=== PATIENT | male | born 1965 | race Caucasian/White ===

== ENCOUNTER 2018-04-12 12:24 | Emergency (ER) | payer MEDICAID ==
[2018-04-12 12:30] VITALS: TEMP 97.8
[2018-04-12] MEDS ORDERED: methylPREDNISolone SOD SUCCI 125 MG/2 ML VIAL IM ONE (14:33)
[2018-04-12] MEDS ORDERED: KETOROLAC 30 MG/ML 1 ML VIAL IM STA (14:34)
--- NOTE | 2018-04-12 14:45 | ED ---
General Adult HPI <Benjamin Steward - Last Filed: 04/12/18 17:27> - General Source: patient, RN notes reviewed Mode of arrival: ambulatory Limitations: no limitations <Ashok Green - Last Filed: 04/12/18 17:36> - General Chief complaint: Back Pain/Injury Stated complaint: back & leg pain Time Seen by Provider: 04/12/18 13:50 - History of Present Illness Initial comments: 53-year-old male presents to the emergency department for a chief complaint of lower back pain 3 weeks. 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 Patient states pain has been consistent since that time. However, today patient woke up with shooting pain in his right lower extremity. He states it was shooting through his buttock and around to his groin and down to his knee. Patient now has tingling in the right lower extremity. Patient admits to mild mild weakness in the right lower extremity but is unsure if this is due to the tingling. However, he states he is able to walk without difficulty. He denies bladder or bowel changes and states he is urinating regularly. He denies any saddle anesthesia or numbness of the groin or buttock. Patient denies any history of chronic steroid use, IV drug abuse, history of cancer. He denies any fevers or chills at home. Patient has no other complaints at this time including shortness of breath, chest pain, abdominal pain, nausea or vomiting, headache, or visual changes. (Ashok Green) - Related Data Home Medications Medication Instructions Recorded Confirmed Ibuprofen [Motrin] 600 mg PO Q4H PRN 04/12/18 04/12/18 buPROPion XL [Wellbutrin Xl] 150 mg PO DAILY 04/12/18 04/12/18 Previous Rx's Medication Instructions Recorded predniSONE 50 mg PO DAILY #5 tablet 04/12/18 Allergies Allergy/AdvReac Type Severity Reaction Status Date / Time Iodinated Contrast- Oral and Allergy Unknown Verified 04/12/18 13:43 IV Dye Review of Systems ROS Other: All systems not noted in ROS Statement are negative. <Benjamin Steward - Last Filed: 04/12/18 17:27> ROS Other: All systems not noted in ROS Statement are negative. <Peter,Ashok P - Last Filed: 04/12/18 17:36> ROS Statement: Those systems with pertinent positive or pertinent negative responses have been documented in the HPI. Past Medical History Past Medical History: No Reported History History of Any Multi-Drug Resistant Organisms: None Reported Past Surgical History: Orthopedic Surgery Additional Past Surgical History / Comment(s): arm reconstuction Past Psychological History: Depression Smoking Status: Never smoker Past Alcohol Use History: None Reported Past Drug Use History: None Reported <Ashok Green P - Last Filed: 04/12/18 17:36> General Exam Limitations: no limitations General appearance: alert, in no apparent distress Head exam: Present: atraumatic, normocephalic, normal inspection Eye exam: Present: normal appearance, PERRL, EOMI. Absent: scleral icterus, conjunctival injection, periorbital swelling, periorbital tenderness ENT exam: Present: normal exam, mucous membranes moist Neck exam: Present: normal inspection, full ROM. Absent: tenderness, meningismus, lymphadenopathy Respiratory exam: Present: normal lung sounds bilaterally. Absent: respiratory distress, wheezes, rales, rhonchi, stridor Cardiovascular Exam: Present: regular rate, normal rhythm, normal heart sounds. Absent: systolic murmur, diastolic murmur, rubs, gallop, clicks Extremities exam: Present: full ROM (90 flexion of the right hip. Full range of motion of the rest of the right lower extremity. Strength 5 out of 5 in bilateral lower extremities.), normal capillary refill (Capillary refill less than 2 seconds and pedal pulse 2+ in the right lower extremity), other ( Sensation intact in the right lower extremity). Absent: tenderness, calf tenderness Neurological exam: Present: alert, oriented X3, CN II-XII intact, normal gait ( Patient ambulatory in the emergency department without any difficulty), motor sensory deficit, reflexes normal (Patellar reflexes 2+ bilaterally, negative mild clonus, no hyperreflexia.) Expanded Motor strength exam: RLE: 5, LLE: 5 DTR: Patellar (R): 2+, Patellar (L): 2+ Eye Response: (4) open spontaneously Motor Response: (6) obeys commands Verbal Response: (5) oriented Manish Total: 15 Psychiatric exam: Present: normal affect, normal mood <Ashok Green P - Last Filed: 04/12/18 17:36> Course <Benjamin Steward - Last Filed: 04/12/18 17:27> <Ashok Green - Last Filed: 04/12/18 17:36> Vital Signs 04/12/18 04/12/18 12:28 16:03 Temperature 97.8 F Pulse Rate 84 83 Respiratory 20 18 Rate Blood Pressure 145/76 138/80 O2 Sat by Pulse 98 96 Oximetry - Reevaluation(s) Reevaluation #1: 04/12/18 17:19 Patient was reevaluated by myself, Dr. Steward. Patient standing at bedside. Patient is able to ambulate without difficulty. Patient does not have any weakness on leg exam. Patient states he does feel better following a dose of steroids earlier. Strength 5/5 bilateral with dorsi and plantar flexion of the feet. Also with extension of the knees. Normal gait. Patient denies incontinence. CT report reviewed. Patient updated on results. Orthopedics has been paged. 04/12/18 17:27 Case was discussed with Dr. Graham who is okay with discharge and will follow up with patient. He does agree with steroids. (Benjamin Steward) Medical Decision Making <Benjamin Steward - Last Filed: 04/12/18 17:27> <Ashok Green - Last Filed: 04/12/18 17:36> - Medical Decision Making 53-year-old male presents to the emergency determine for a chief complaint of back pain 3 weeks and right lower extremity numbness times one day. Patient woke up with shooting pains on the right leg today which then progressed to a tingling feeling. Numbness is subject days and patient does have sensation throughout right lower extremity. Neurovascular intact in lower extremities bilaterally. Patellar reflexes 2+, no hyperreflexia noted. Negative mild clonus. Patient is ambulatory in the emergency department. He did admit to mild weakness but there is no weakness evident on exam bilaterally. Strength 5 out of 5 in right lower extremity. patient is standing and walking the hallway. CT lumbar spine shows multilevel degenerative disc disease. Disc herniation paracentrally and to the right at L4-L5 with right lateral recess stenosis and right foraminal encroachment. I did speak with SUNIL Patricio and Dr. Steward spoke with Dr. Graham who both recommended outpatient follow-up to Dr. Graham along with steroids. Patient was given Toradol and Solu-Medrol IM here in the emergency department. He will be given a prescription for prednisone for 5 days. Patient will return if he has any bladder or bowel changes, increased weakness in the lower extremities, or saddle anesthesia. He will call Dr. Graham tomorrow morning to make an appointment. Patient is comfortable with this plan of care and agrees. Dr. Steward also saw and evaluated the patient. (Ashok Green) Disposition <Benjamin Steward - Last Filed: 04/12/18 17:27> Is patient prescribed a controlled substance at d/c from ED?: No Time of Disposition: 17:28 <Ashok Green - Last Filed: 04/12/18 17:36> Clinical Impression: Back pain Disposition: HOME SELF-CARE Condition: Good Instructions: Acute Low Back Pain (ED) Additional Instructions: Please follow-up with orthopedics in one to 2 days. Please take Motrin for pain. Take steroid as directed. Return to the emergency department if you have any bladder or bowel changes or numbness of the groin or buttocks. Prescriptions: predniSONE 50 mg PO DAILY #5 tablet Referrals: Eamon Hoang MD [STAFF PHYSICIAN] - 1-2 days Nhan Graham DO [Doctor of Osteopathic Medicine] - 1-2 days
--- NOTE | 2018-04-12 15:06 | CT ---
EXAMINATION TYPE: CT lumbar spine wo con DATE OF EXAM: 04/12/2018 COMPARISON: None HISTORY: lower back pain CT DLP: 1293.[address] of the lumbar spine was performed. Bone and soft tissue window settings are submitted as well as coronal and sagittal reconstructions. L1-L2: Normal disc space height. No disc herniation protrusion or central stenosis. No facet joint arthropathy. No evidence for foraminal encroachment. L2-L3: Moderate degenerative disc space narrowing. Circumferential disc bulge with mild effacement ve ntral thecal sac. No evidence for disc herniation or central stenosis. Mild bilateral foraminal encro achment. L3-L4: Moderate degenerative disc space narrowing. Circumferential disc bulge with mild effacement ve ntral thecal sac. No evidence for disc herniation or central stenosis. Mild bilateral foraminal encro achment. L4-L5: Moderate degenerative disc space narrowing. Subligamentous right paracentral disc herniation r esulting in right lateral recess stenosis and right-sided foraminal encroachment. L5-S1: Mild degenerative disc space narrowing. No disc herniation protrusion or central stenosis. No facet joint arthropathy. No evidence for foraminal encroachment. No paraspinal masses are identified. Lumbar segments are free if fracture. IMPRESSION: 1. Multilevel degenerative disc disease. 2. Disc herniation paracentrally and to the right at L4-5 with right lateral recess stenosis and rig ht foraminal encroachment.
[2018-04-12 16:06] VITALS: BP 138/80; PULSE 83; RESP 18
== END 2018-04-12 17:37 | disposition home or self-care (01) ==
LOC: EC 12:24
DX: M48.061 Spinal stenosis, lumbar region without neurogenic claudication (principal); M51.26 Other intervertebral disc displacement, lumbar region; M51.36 Other intervertebral disc degeneration, lumbar region; M79.661 Pain in right lower leg; R20.2 Paresthesia of skin; F32.9 Major depressive disorder, single episode, unspecified; Z79.899 Other long term (current) drug therapy; Z91.041 Radiographic dye allergy status
CPT/HCPCS: 72131; 99283; 96372 ×2; J2930; J1885

== ENCOUNTER → 2018-05-03 | Outpatient (CLI) | payer MEDICAID ==
--- NOTE | 2018-05-03 22:37 | MR ---
EXAMINATION TYPE: MR lumbar spine wo con DATE OF EXAM: 05/03/2018 COMPARISON: CT lumbar spine April 12, 2018. HISTORY: low back pain; Pain in back of Right thigh and calf x1 month, Prev CT of LSP TECHNIQUE: Multiplanar, multisequence imaging of the lumbar spine is performed without IV contrast. FINDINGS: Sagittal images of the lumbar spine show vertebral body heights and alignment to appear sat isfactory. Multilevel disc desiccation is present. There is multilevel [id number] disc space n arrowing with relative sparing of L3-L4 and L4-L5 levels. Multilevel posterior disc herniations are s een on sagittal images, largest is inferior extrusion L4-L5 level sagittal image 9. The conus medulla ris is normal in position and signal ending mid L1 level. The bone marrow signal intensity is within normal limits. Mild to moderate multilevel anterior spurring is present. Axial images show the T12-L1 level to appear within normal limits. Axial images at the L1-L2 level broad-based posterior disc protrusion mildly facing anterior thecal s ac and mild facet degenerative changes bilaterally. Bilateral neural foramina are patent. Axial images at L2-L3 level show mild facet degenerative changes bilaterally. There is a broad-based posterior disc protrusion mildly effacing the anterior thecal sac. There is mild bilateral anterior i nferior neural foraminal narrowing noted. Axial images at the L3-L4 level show [id number] facet degenerative changes bilaterally. There i s broad-based posterior disc protrusion mildly facing anterior thecal sac. There is mild bilateral an terior inferior neural foraminal narrowing noted. Axial images at L4-L5 level mild facet degenerative changes bilaterally. There is broad disc bulge wi th right paracentral disc extrusion extending inferiorly past midpoint of the right L5 vertebra. Ther e is effacement of the lateral recess in the anterolateral thecal sac with encroachment on central ri ght-sided L5 and possibly upper sacral nerve seen sagittal image 9. There is mild bilateral neural fo raminal narrowing noted. Axial images at the L5-S1 level shows moderate facet degenerative changes bilaterally. Spinal canal i s preserved. Bilateral neural foramina are patent. No suspicious retroperitoneal findings are seen. IMPRESSION: Multilevel degenerative changes in lumbar spine as detailed above, most prominent disc he rniation right L4-L5 level noted likely accounting for patient's right-sided radiculopathy type sympt oms.
== END | disposition home or self-care (01) ==
LOC: RADMRIMAIN 19:28
PROVIDERS: ATTEND Orthopaedic Surgery Orthopaedic Surgery of the Spine
DX: M51.16 Intervertebral disc disorders with radiculopathy, lumbar region (principal); M47.27 Other spondylosis with radiculopathy, lumbosacral region
CPT/HCPCS: 72148

== ENCOUNTER → 2018-05-28 | Outpatient (CLI) | payer MEDICAID ==
[2018-05-28 12:26] LABS: HCT 42.9 % (39.0-53.0); HGB 14.2 gm/dL (13.0-17.5); MCH 29.2 pg (25.0-35.0); MCHC 33.1 g/dL (31.0-37.0); MCV 88.4 fL (80.0-100.0); Mean Platelet Volume 7.2; Platelet Count 283 k/uL (150-450); RBC 4.86 m/uL (4.30-5.90); RDW 13.2 % (11.5-15.5); WBC 7.4 k/uL (3.8-10.6)
[2018-05-28 12:36] LABS: Appearance,Urine Clear (Clear); Bilirubin,Urine Negative (Negative); Blood,Urine Negative (Negative); Color,Urine Yellow; Glucose,Urine (UA) Negative (Negative); Ketones,Urine Negative (Negative); Leukocyte Esterase,Urine Negative (Negative); Nitrite,Urine Negative (Negative); PH, Urine 6.5 (5.0-8.0); Partial Thromboplastin Time 24.8 sec (22.0-30.0); Protein,Urine Negative (Negative); Prothrombin Time 10.1 sec (9.0-12.0); Specific Gravity,Urine 1.018 (1.001-1.035); Urobilinogen,Urine <2.0 mg/dL (<2.0)
--- NOTE | 2018-05-28 16:30 | XR ---
EXAMINATION TYPE: XR chest 2V DATE OF EXAM: 05/28/2018 COMPARISON: None INDICATION: Presurgical evaluation TECHNIQUE: Frontal and lateral views of the chest are obtained. FINDINGS: The heart size is normal. The pulmonary vasculature is normal. The lungs are clear. IMPRESSION: 1. No acute pulmonary process.
[2018-05-28 18:38] LABS: Albumin 4.5 g/dL (3.80-4.90); Albumin/Globulin Ratio 1.88 (1.20-2.10); Anion Gap 5.1 mmol/L (4.00-12.00); Calcium 9.4 mg/dL (8.7-10.3); Carbon Dioxide 28.9 mmol/L (21.6-31.8); Globulin 2.4 g/dL (2.1-3.7); Total Bilirubin 0.6 mg/dL (0.3-1.2); Total Protein 6.9 g/dL (6.2-8.2)
== END ==
LOC: LABWHC1 11:03
PROVIDERS: ATTEND Orthopaedic Surgery Orthopaedic Surgery of the Spine
DX: Z01.818 Encounter for other preprocedural examination (principal); Z01.812 Encounter for preprocedural laboratory examination; M51.26 Other intervertebral disc displacement, lumbar region; Z98.890 Other specified postprocedural states
CPT/HCPCS: 36415; 71046; 80053; 81003; 85027; 85610; 85730; 93005